=== PATIENT | male | born 1970 | race Caucasian/White ===

== ENCOUNTER 2025-10-11 09:22 | Day surgery (SDC) | payer BC, SELFPAY ==
[2025-10-10 23:32] VITALS: BP 132/87
[2025-10-11 00:30] VITALS: BMI 33.8
[2025-10-11 00:33] VITALS: BP 149/98
[2025-10-11 01:45] VITALS: BP 138/75
--- NOTE | 2025-10-11 01:49 | ED.GENMED ---
History of Present Illness
General
Chief Complaint: Esophageal Problem
Time Seen by Provider: 10/11/25 01:28
History of Present Illness
History of Present Illness:
Patient is a 55-year-old man with history of hypertension, hyperlipidemia presenting to the emergency department with a food bolus impaction. Patient states that 7 PM he was eating steak and he felt as if it was stuck. He tried carbonated
beverages with no LOC. He has been intermittently spitting up his saliva. No drooling. Normal speech. He denies any chest pain or shortness of breath. He did trial drinking sips of water which unfortunately was not able to go down. This has
never happened to him before.
Past History
Past History
ED Past Medical History: Other (Hypertension, hyperlipidemia)
Social History
Tobacco: Non-smoker
Alcohol: Occasional
Family History
Family History: Other (Mother with DE at 66 years old)
Phy Exam
Physical Exam
Physical Exam:
GENERAL: in no acute distress
HEENT: normocephalic, extraocular movements intact, moist oral mucosa, protecting his airway, intermittently spitting up saliva, no drooling
NECK: normal inspection
RESPIRATORY: no respiratory distress, clear to auscultation bilaterally
CARDIOVASCULAR: regular rate and rhythm
ABDOMEN/: soft, non-distended, non-tender to palpation, no rebound or guarding
EXTREMITIES: non-tender, no edema/swelling
NEUROLOGIC: awake and alert, moves all extremities
SKIN: warm
Course
Orders/Labs/Results
Orders:
Orders
10/11/25 01:48
Glucagon [GlucaGen] 1 mg IV NOW STA
Ondansetron Injectable [Zofran] 4 mg IV NOW STA
10/11/25 02:45
Glucagon [GlucaGen] 1 mg IV NOW STA
10/11/25 03:00
Complete Blood Count/With Diff Urgent
Comprehensive Metabolic Panel Urgent
10/11/25 04:59
Lorazepam [Ativan] 2 mg .ROUTE .STK-MED ONE
10/11/25 05:02
Lorazepam [Ativan] 0.5 mg IV NOW STA
10/11/25 05:15
0.9% Sodium Chloride 1000 ml [Nss] 1,000 ml IV 200 mls/hr
10/11/25 08:04
Dexamethasone Sod Phosphate [Decadron] 20 mg .ROUTE .STK-MED ONE
Lidocaine 2% Mpf [Xylocaine Mpf 2%] 100 mg .ROUTE .STK-MED ONE
Ondansetron Injectable [Zofran] 4 mg .ROUTE .STK-MED ONE
Propofol [Diprivan] 20 ml .ROUTE .STK-MED
Rocuronium [place] [Rocuronium] 50 mg .ROUTE .STK-MED ONE
Succinylcholine Chloride [Succinylcholine] 200 mg .ROUTE .STK-MED ONE
Sugammadex Sodium [Bridion] 200 mg .ROUTE .STK-MED ONE
10/11/25 08:52
Fentanyl Citrate/Pf [Sublimaze] 100 mcg .ROUTE .STK-MED ONE
Abnormal Lab Results
10/11/25
03:00
WBC 15.5 H 10^3/uL
(4.8-10.8)
MPV 11.0 H fL
(7.4-10.4)
Abs Immat Gran (auto) 0.1 H 10^3/uL
(0-0.05)
Absolute Neuts (auto) 11.1 H 10^3/uL
(1.4-6.5)
Absolute Monos (auto) 1.3 H 10^3/uL
(0.1-0.6)
Lymphocytes % 17.3 L %
(20.5-51.1)
Glucose 137 H mg/dl
(70-99)
10/11/25 03:00
10/11/25 03:00
Vital Signs
Initial and Last Documented VS:
Initial Vital Signs
Temp Pulse Resp BP Pulse Ox
97.2 F 51 18 132/87 97
10/10/25 23:32 10/10/25 23:32 10/10/25 23:32 10/10/25 23:32 10/10/25 23:32
Last Documented Vital Signs
Temp Pulse Resp BP Pulse Ox
98.0 F 96 20 140/86 94
10/11/25 10:16 10/11/25 10:16 10/11/25 10:16 10/11/25 10:16 10/11/25 10:16
MDM/Problems Addressed
Differential Diagnosis Includes:
Patient is a 55-year-old man presenting to the emergency department with the concerns for food bolus impaction. On arrival vitals unremarkable and exam shows a man who is protecting his airway and mostly tolerating his own secretions but
intermittently spitting up his saliva. Concern for impaction secondary to steak. Patient already tried a carbonated beverage. Will trial glucagon as well as pretreatment with Zofran.
*Pulse Oximetry
SaO2: 98
Oxygen Mode of Delivery: Room air
Patient hypoxic: no
*Critical Care Note
Total Time (30-74mins, 75-104mins- exclusive of procedures): Not Applicable
Update Note
Update Note:
On reevaluation patient with no change. Discussed with GI who will evaluate patient in the morning requesting 2nd dose. Patient signed out to oncoming attending with plans of EGD in the AM if it hasn't passed.
ED Attending Note
-
Portions of this chart may have been created with voice recognition software.� Occasional wrong word or��sound alike� substitutions may have occurred due to the inherent limitations of voice recognition software.
Discharge Plan
Interventions
Interventions:
*General Assessment Last Done: 10/11/25 00:31
*Neglect/Abuse Screening Last Done: 10/11/25 00:31
*ED COVID-19 Vaccine History Last Done: 10/11/25 00:31
*ED Influenza Vaccine History Last Done: 10/11/25 00:31
[facility] Risk Assessment Tool Last Done: 10/11/25 00:32
*Risk Screen - Suicide (C-SSRS) Last Done: 10/10/25 23:32
*Nursing Disposition Last Done: 10/11/25 09:11
CO-Yctleg-Qatlrulaqe Assessment Last Done: 10/11/25 00:40
ED-EENT Assessment Last Done: 10/11/25 00:40
[2025-10-11] MEDS: ZOFRAN 4 MG IV (01:59)
[2025-10-11 03:13] LABS: Hematocrit 47.1 % (39.0-52.0); Hemoglobin 15.9 g/dL (13.0-18.0); Mean Corp Hgb Conc. 33.8 g/dL (33.0-37.0); Mean Corpuscular Volume 88.2 fL (80.0-94.0); Nucleated Red Blood Cells % 0 % (-); Platelet Count 227 10^3/uL (130-400); Red Cell Dist. Width 12.9 % (11.5-14.5)
[2025-10-11 03:37] LABS: ALT (SGPT) 44 U/L (0-50); AST (SGOT) 38 U/L (17-59); Albumin 4.9 g/dl (3.5-5.0); Alkaline Phosphatase 55 U/L (38-126); Blood Urea Nitrogen 19 mg/dl (9-20); Calcium 9.9 mg/dl (8.4-10.2); Carbon Dioxide 25 mmol/L (22-30); Chloride 102 mmol/L (98-107); Estimated Creatinine Clearance 117 ml/min; Glucose 137 mg/dl (70-99); Potassium 4.1 mmol/L (3.5-5.1); Sodium 139 mmol/L (135-145); Total Protein 7.9 g/dl (6.3-8.2); eGFR > 60.00
[2025-10-11] MEDS: ATIVAN 0.5 MG IV (05:02)
[2025-10-11] MEDS: NSS 1000 IV (05:13)
[2025-10-11 09:40] VITALS: BP 136/92; BP 138/75
[2025-10-11 09:45] VITALS: BP 142/88
--- NOTE | 2025-10-11 10:00 | CON.GI ---
Consultation
-
Date/Time Consultation Requested: 10/10/25
Date/Time Consultation Performed: 10/10/25
Requesting Provider: Dr Jose
Performing Provider: Dr Nazario
Reason for Consultation: food impaction
Medical History
Chief Complaint / HPI
Chief Complaint: can't swallow
History of Present Illness:
Dutch is a 55yo M with h/o HTN, hyperlipidemia and GERD who presented to ER for acute food impaction. He was eating steak at 7pm and felt it stuck. He could not tolerate saliva and spitting up. Denies abd pain, chest pains or SOB. He had
tried to drink water but it would not pass. He reports intermittent reflux and heartburn with solid food dysphagia in the past year or so. Denies nausea/vomiting or recent wt loss. No asthma or eczema history. Denies AC or nsaid use
Past Medical History
Past Medical History: GERD, HTN and Hypercholesterolemia
Social History
Tobacco: Non-Smoker
Alcohol: Occasional
Drug: None
Personal:
Living: With Family
Family History
Family History: Reviewed & Not Pertinent
Allergies / Home Medications
Allergy/AdvReac Type Severity Reaction Status Date / Time
No Known Allergies Allergy Verified 10/10/25 23:32
�Medication �Instructions �Recorded
lisinopril 10 1 ea PO DAILY 07/29/16
mg-hydrochlorothiazide 12.5 mg
tablet
multivitamin (Multi-Day tablet) 1 ea PO DAILY 07/29/16
omega 1-yap-yly-fish oil 500 mg 1 ea PO Daily 07/29/16
(200mg-300mg)-1,000 mg capsule
tadalafil 2.5 mg tablet (Cialis) 2.5 mg PO PRN PRN ED 03/29/19
Review of Systems
-
All other systems: A 12 pt ROS was Negative except as stated above in HPI
Vital Signs
Temp Pulse Resp BP Pulse Ox
98.8 F 91 15 142/88 99
10/11/25 09:40 10/11/25 09:45 10/11/25 09:45 10/11/25 09:45 10/11/25 09:45
Physical Exam
Exam
GEN: No acute distress, conversant, pleasant spitting up in basin
HEENT: anicteric, extraocular movements intact, clear oropharynx without exudates
GI: soft, obese, mildly-distended, not tender to palpation, normal active bowel sounds, no hepatosplenomegaly
EXT: warm, well perfused,trace edema bilaterally
NEURO: AAOx3, non-focal
Results
WBC 15.5 10^3/uL (4.8-10.8) H 10/11/25 03:00
Hgb 15.9 g/dL (13.0-18.0) 10/11/25 03:00
Hct 47.1 % (39.0-52.0) 10/11/25 03:00
MCV 88.2 fL (80.0-94.0) 10/11/25 03:00
Plt Count 227 10^3/uL (130-400) 10/11/25 03:00
Absolute Neuts (auto) 11.1 10^3/uL (1.4-6.5) H 10/11/25 03:00
Sodium 139 mmol/L (135-145) 10/11/25 03:00
Potassium 4.1 mmol/L (3.5-5.1) 10/11/25 03:00
Chloride 102 mmol/L (98-107) 10/11/25 03:00
Carbon Dioxide 25 mmol/L (22-30) 10/11/25 03:00
BUN 19 mg/dl (9-20) 10/11/25 03:00
Creatinine 0.8 mg/dL (0.7-1.3) 10/11/25 03:00
Calcium 9.9 mg/dl (8.4-10.2) 10/11/25 03:00
Total Bilirubin 0.8 mg/dl (0.2-1.3) 10/11/25 03:00
AST 38 U/L (17-59) 10/11/25 03:00
ALT 44 U/L (0-50) 10/11/25 03:00
Alkaline Phosphatase 55 U/L (38-126) 10/11/25 03:00
Diagnostic Image Results:
None
Assessment / Plan
-
55yo M with h/o obesity, HTN and HL who presents with food impaction after eating steak at 7pm 10/10/25. Not tolerating secretions. Food did not pass with glucagon.
Impression
-Food impaction
-GERD
-HTN
-HL
-Obesity
Recommendation
- Urgent EGD
- Risk/benefits discussed
- Plan for d/c home post above once d/c criteria met
- Intubation
- Prilosec 20mg OTC daily
- Labs reviewed
- Chew slowly
-
-
Thank you for consultation and allowing me to participate in the patient's care. Please call the subway conductor GI physician during the after hours with any questions or concerns.
[2025-10-11 10:01] VITALS: BP 116/84
[2025-10-11 10:16] VITALS: BP 140/86
== END 2025-10-11 09:46 | disposition home or self-care (01) ==
LOC: GI 09:22
PROVIDERS: ATTENDING PHYSICIAN Student in an Organized Health Care Education/Training Program; FAMILY PHYSICIAN Nurse Practitioner Family
DX: T18.128A Food in esophagus causing other injury, initial encounter (principal); W44.F3XA Food entering into or through a natural orifice, initial encounter; R13.10 Dysphagia, unspecified; I10 Essential (primary) hypertension; K44.9 Diaphragmatic hernia without obstruction or gangrene
CPT/HCPCS: 43247; 80053; 85025; 99285; J1610